=== PATIENT | female | born 1940 | race Caucasian/White ===

== ENCOUNTER 2021-06-30 13:21 | Inpatient (IN) | payer MEDICARE, OTHER ==
[~2021-06-30] VITALS: Ht 162.6 cm; Wt 77.1 kg
--- NOTE | 2021-06-30 13:34 | NUR ---
PT CAME TO ER C/O SYNCOPE TODAY. PT SLIPPED FROM CHAIR AND REPORTS HITTING R SIDE OF HEAD. DENIES PAIN, NAUSEA, DIZZINESS. AAOX4, BREATHING EVEN AND UNLABORED. ASSISTED TO ER BED 2. ON MONITOR. VS STABLE. AWAITING MD FOR EVAL.
--- NOTE | 2021-06-30 13:52 | NUR ---
RADIOLOGY AT BEDSIDE
--- NOTE | 2021-06-30 14:21 | NUR ---
PT TAKEN TO CT
--- NOTE | 2021-06-30 14:40 | NUR ---
LAB AT BEDSIDE
--- NOTE | 2021-06-30 14:43 | NUR ---
MOVE SHEET SUBMITTED AND CALLED FOR TELE BED.
[2021-06-30] MEDS ORDERED: LEVO100T9 PO (14:48)
[2021-06-30] MEDS ORDERED: ATOR20TA PO (14:48)
[2021-06-30] MEDS ORDERED: LISI1TAB55 PO (14:48)
[2021-06-30 14:56] LABS: BASOPHILS % (AUTO) 0.4 % (0.0-2.0); EOSINOPHILS % (AUTO) 0.4 % (0.0-6.0); HEMATOCRIT 39 % (33-45); HEMOGLOBIN 13.1 g/dL (11.5-14.8); LYMPHOCYTES # (AUTO) 1.1 K/uL (0.8-4.8); LYMPHOCYTES % (AUTO) 9.5 % (20.0-44.0); MEAN CORPUSCULAR HGB CONC 33 g/dl (31.0-36.0); MEAN CORPUSCULAR VOLUME 91 fL (82-100); MONOCYTES # (AUTO) 0.7 K/uL (0.1-1.30); NEUTROPHILS # (AUTO) 9.5 K/uL (1.8-8.9); NEUTROPHILS % (AUTO) 83.7 % (43.0-81.0); PLATELET COUNT (AUTO) 344 K/uL (150-450); RED BLOOD CELL COUNT(AUTO) 4.33 MIL/uL (4.0-5.2); WHITE BLOOD COUNT (AUTO) 11.3 K/uL (4.3-11.0)
[2021-06-30 15:06] LABS: CALCIUM, SERUM 9.8 mg/dL (8.5-10.1); CARBON DIOXIDE 28 mmol/L (21-32); CHLORIDE 103 mmol/L (98-107); CREATININE 1.1 mg/dL (0.6-1.3); GLUCOSE 100 mg/dL (74-106); POTASSIUM 3.8 mmol/L (3.5-5.1); SODIUM SERUM 139 mmol/L (136-145); UREA NITROGEN, BLOOD 26 mg/dL (7-18)
[2021-06-30 15:11] LABS: ALANINE AMINOTRANSFERASE 27 U/L (12-78); ALBUMIN 3.5 g/dL (3.4-5.0); ALKALINE PHOSPHATASE 113 U/L (46-116); ASPARTATE AMINOTRANSFERASE 20 U/L (15-37); BILIRUBIN,DIRECT 0.4 mg/dL (0.0-0.2); BILIRUBIN,TOTAL 2.9 mg/dL (0.2-1.0); TOTAL PROTEIN, SERUM 7.4 g/dL (6.4-8.2)
--- NOTE | 2021-06-30 15:22 | NUR ---
PT SITTING IN BED COMFORTABLY, NO PRESENT COMPLAINTS. NEEDS MET
--- NOTE | 2021-06-30 16:32 | NUR ---
COVID SAMPLE OBTAINED AND SENT TO LAB
--- NOTE | 2021-06-30 18:15 | NUR ---
GOT BED 308-1
--- NOTE | 2021-06-30 18:23 | NUR ---
REPORT GIVEN TO NURSE RINA FOR PATEL
[2021-06-30] MEDS ORDERED: ONDANSETRON HCL/PF 4 MG/2 ML VIAL IVP PRN ×2 (19:00→19:15)
[2021-06-30] MEDS ORDERED: Z GUARD REMEDY 4 OZ OINT TP PRN ×2 (19:00→19:15)
[2021-06-30] MEDS ORDERED: MAG HYDROX/AL HYDROX/SIMETH 30 ML UDC PO PRN ×2 (19:00→19:15)
[2021-06-30] MEDS ORDERED: MAGNESIUM HYDROXIDE 30 ML UDC PO PRN ×2 (19:00→19:15)
[2021-06-30] MEDS ORDERED: ZOLPIDEM TARTRATE 5 MG TABLET PO PRN ×2 (19:00→19:15)
[2021-06-30] MEDS ORDERED: ACETAMINOPHEN 325 MG TABLET PO PRN ×2 (19:00→19:15)
--- NOTE | 2021-06-30 19:00 | NUR ---
PT TANSFERRED TO 3W 308-1 VIA ACLS PROTOCOL. ALL BELONGINGS WITH PT. VSS.
[2021-06-30 19:30] VITALS: BP 134/88
--- NOTE | 2021-06-30 19:30 | NUR ---
NETWORK SECURITY ARCHITECT NOTES PT RECEIVED IN BED ALERT AND ORIENTED X4 ABLE TO MAKE NEEDS KNOWN NO SOB OR DISTRESS NOTED. NO CHEST PAIN REPORTED NO LIGHTHEADEDNESS, OR HEADACHE REPORTED. PT ON TELE MONITOR READING SR 70S. PT HAS IV ACCESS ON THE LEFT AC 20G S/L PATENT FLUSHING WELL. PT SKIN IS DRY WARM AND INTACT NO DISCOLORATION OR OPEN SKIN NOTED AT THIS TIME. PT ORIENTED TO ROOM AND UNIT. CALL LIGHT AND TABLE PLACED WITHIN REACH. PT INSTRUCTED NOT TO GET UP ON HER OWN SHE HAD A SYNCOPAL EPISODE AND TO CALL FOR ASSISTANCE. PT VERBALIZED UNDERSTANDING. BELONGINGS CHECKED. WILL CONTINUE TO MONITOR.
[2021-06-30 20:00] VITALS: BP 134/88
[2021-07-01] VITALS (8 sets, daily range): BP systolic 102–145; BP diastolic 55–100
--- NOTE | 2021-07-01 05:14 | NUR ---
RECREATION WORKER NOTES PRN TYLENOL GIVEN FOR HEADACHE. TOLERATED WELL. WILL CONTINUE TO MONITOR.
--- NOTE | 2021-07-01 06:26 | NUR ---
SENIOR SSIS DEVELOPER NOTES PT RECEIVED IN BED ALERT AND ORIENTED X4 ABLE TO MAKE NEEDS KNOWN NO SOB OR DISTRESS NOTED. NO CHEST PAIN REPORTED NO LIGHTHEADEDNESS, OR HEADACHE REPORTED. PT ON TELE MONITOR READING SR 80S. PT HAS IV ACCESS ON THE LEFT AC 20G S/L PATENT FLUSHING WELL. PT INSTRUCTED NOT TO GET UP ON HER OWN SHE HAD A SYNCOPAL EPISODE AND TO CALL FOR ASSISTANCE. PT VERBALIZED UNDERSTANDING. BELONGINGS CHECKED. WILL CONTINUE TO MONITOR.
--- NOTE | 2021-07-01 08:00 | NUR ---
RN Note Patient received AO x 4, able to responds all stimuli. denies pain or any discomfort. Respiratory even and unlabored on room air. Skin is warm to touch keep clean/dry. Call light within reach, will continue to monitor.
--- NOTE | 2021-07-01 18:00 | NUR ---
RN Closing Note Patient resting in bed, remains AO x 4. Respiratory even and unlabored on room air. Denies pain or discomfort. Skin is warm to touch, keep clean/dry, intact iv site. Kept elevated HOB for ensure airway and lower position of the bed for safety. Call light within reach, all needs met. will endorse power and recovery shift engineer.
--- NOTE | 2021-07-01 18:25 | NUR ---
Follow up with MD for DVT prophylaxis, new order SCD. Patient no need chemical prophylaxis required according MD due to patient ambulatory.
--- NOTE | 2021-07-01 19:35 | NUR ---
RN NOTES RECEIVED PATIENT AWAKE ON HER BED, A/OX4, SR ON TEL MONITOR DENIES PAIN, NO SOB, CALL LIGHT WITHIN REACH, [id number], WILL CONTINUE TO MONITOR
[2021-07-02] VITALS: BP 133/67
[2021-07-02 04:00] VITALS: BP 130/81
--- NOTE | 2021-07-02 06:55 | NUR ---
RN NOTES AWAKE, DENIES PAIN, NO SOB, MORNING CARE RENDERED, CALL LIGHT WITHIN REACH, [id number], PT. NEEDS ATTENDED
--- NOTE | 2021-07-02 07:30 | NUR ---
MANUFACTURING TECHNOLOGIST OPENING NOTES RECEIVED PATIENT AWAKE ON BED AND A/O X4. ON ROOM AIR TOLERATING WELL. NO SOB NOTED. NOT IN DISTRESS. WITH NO COMPLAINTS OF PAIN OR DISCOMFORT AT THIS TIME. WITH IV ACCESS AT LEFT AC G20, SALINE LOCKED, PATENT AND INTACT. SAFETY MEASURES IN PLACED. CALL LIGHT WITHIN REACH. BED ON LOWEST LOCKED POSITION, SIDE RAILS UP X2. WILL CONTINUE TO MONITOR.
[2021-07-02 07:37] LABS: BASOPHILS % (AUTO) 0.7 % (0.0-2.0); EOSINOPHILS % (AUTO) 3.3 % (0.0-6.0); HEMATOCRIT 38 % (33-45); LYMPHOCYTES # (AUTO) 1.9 K/uL (0.8-4.8); LYMPHOCYTES % (AUTO) 29.5 % (20.0-44.0); MEAN CORPUSCULAR HGB CONC 34 g/dl (31.0-36.0); MEAN CORPUSCULAR VOLUME 91 fL (82-100); MONOCYTES # (AUTO) 0.6 K/uL (0.1-1.30); MONOCYTES % (AUTO) 8.8 % (2.0-12.0); NEUTROPHILS # (AUTO) 3.7 K/uL (1.8-8.9); NEUTROPHILS % (AUTO) 57.7 % (43.0-81.0); PLATELET COUNT (AUTO) 334 K/uL (150-450); RED BLOOD CELL COUNT(AUTO) 4.24 MIL/uL (4.0-5.2); WHITE BLOOD COUNT (AUTO) 6.4 K/uL (4.3-11.0)
[2021-07-02 08:14] VITALS: BP 110/64
[2021-07-02 08:50] LABS: CREATININE 0.9 mg/dL (0.6-1.3); MAGNESIUM 1.9 mg/dL (1.8-2.4); PHOSPHORUS 3.5 mg/dL (2.5-4.9); POTASSIUM 3.9 mmol/L (3.5-5.1)
[2021-07-02 09:40] LABS: CALCIUM, SERUM 9.2 mg/dL (8.5-10.1)
[2021-07-02 12:00] VITALS: BP 115/62
[2021-07-02 15:43] VITALS: BP 135/68
--- NOTE | 2021-07-02 18:39 | NUR ---
ASH COLLECTOR CLOSING NOTES PATIENT AWAKE ON BED AND A/O X4. ON ROOM AIR TOLERATING WELL. NO SOB NOTED. NOT IN DISTRESS. ABLE TO MAKE NEEDS KNOWN. WITH NO COMPLAINTS OF PAIN OR DISCOMFORT AT THIS TIME. WITH IV ACCESS AT LEFT AC G20, SALINE LOCKED, PATENT AND INTACT. SAFETY MEASURES IN PLACED. CALL LIGHT WITHIN REACH. BED ON LOWEST LOCKED POSITION, SIDE RAILS UP X2. WILL ENDORSE TO NEXT SHIFT FOR PATEL.
--- NOTE | 2021-07-02 18:40 | NUR ---
RN NOTE ON TELE MONITOR CURRENTLY READING SINUS RHYTHM AT 79BPM.
--- NOTE | 2021-07-02 19:40 | NUR ---
SENIOR RESEARCH MANAGER OPENING NOTE RECEIVED PATIENT IN BED. A/OX4. NO S/S OF APPARENT DISTRESS ON ROOM AIR. DENIES PAIN AT THIS TIME. TELE MONITOR READING SR 87. SAFETY IN PLACE. NEEDS ATTENDED AT THE MOMENT. L.AC IV ACCESS FLUSHED-- INTACT AND PATENT. SAFETY IN PLACE. WILL CONTINUE TO MONITOR AND FOLLOW THROUGH PATIENT CARE PLAN.
[2021-07-02 20:00] VITALS: BP 124/68
[2021-07-02] MEDS ORDERED: ATORVASTATIN 10 MG TABLET PO SCH (22:00)
[2021-07-03] VITALS: BP 98/41
--- NOTE | 2021-07-03 00:12 | NUR ---
TRENCHING MACHINE OPERATOR NOTE BP 98/41 UPON RECHECKED. PATIENT DENIES ANY LIGHTHEADEDNESS AT THIS TIME.
--- NOTE | 2021-07-03 02:22 | NUR ---
VENEER JOINTER RETURNER NOTE REPORT GIVEN TO [place] FOR CONTINUITY OF CARE.
[2021-07-03 04:00] VITALS: BP 125/59
--- NOTE | 2021-07-03 06:40 | NUR ---
TEST DRILLER CLOSING NOTE PATIENT IN BED. A/OX4. NO S/S OF APPARENT DISTRESS ON ROOM AIR. DENIES PAIN AT THIS TIME. TELE MONITOR READING SR . SAFETY IN PLACE. NEEDS ATTENDED AT THE MOMENT. LAC IV ACCESS FLUSHED-- INTACT AND PATENT. SAFETY IN PLACE. WILL ENDORSE CARE TO DAYS SHIFT NURSE.
--- NOTE | 2021-07-03 07:43 | NUR ---
CORE DRILLER HELPER OPENING NOTE RECEIVED PATIENT IN BED, SITTING UP ON CELL PHONE. A/OX4. NO S/S OF APPARENT DISTRESS, NO SOB. ON ROOM AIR, TOLERATING WELL. NO COMPLAINTS OF PAIN AT THIS TIME. IV ACCESS LAC#20 PATENT AND INTACT SL. TELE MONITOR READING SR 85. SAFETY MEASURES IN PLACE WITH BED LOW AND LOCKED, SIDE RAILS UP X 2 . CALL LIGHT IS WITHIN REACH. WILL CONTINUE TO MONITOR PATIENT THROUGHOUT SHIFT.
[2021-07-03 08:00] VITALS: BP 118/68
[2021-07-03] MEDS ORDERED: LEVOTHYROXINE SODIUM 100 MCG TABLET PO SCH (09:00)
== END 2021-07-03 16:00 | disposition home or self-care (01) | DRG 312 ==
LOC: ER 13:49 → TELE 21:14
PROVIDERS: ADMIT Student in an Organized Health Care Education/Training Program; ATTEND Student in an Organized Health Care Education/Training Program
DX: I95.1 Orthostatic hypotension (principal); I10 Essential (primary) hypertension; Z79.899 Other long term (current) drug therapy; E86.0 Dehydration; D72.829 Elevated white blood cell count, unspecified; E78.5 Hyperlipidemia, unspecified; E03.9 Hypothyroidism, unspecified; Z79.890 Hormone replacement therapy; R79.89 Other specified abnormal findings of blood chemistry; I35.0 Nonrheumatic aortic (valve) stenosis; Z20.822 Contact with and (suspected) exposure to COVID-19
CPT/HCPCS: 36415; 70450-TC; 71045-TC; 80048-TC; 80076-TC; 83735-TC; 84100-TC; 84443-TC; 84484-TC; 85025-TC; 85730-TC; 87081-TC; 93307-TC; 97116-TC; 97530-TC; C9803; G0378

== ENCOUNTER 2022-02-13 11:18 | Inpatient (IN) | payer BC, MEDICARE, OTHER ==
[~2022-02-13] VITALS: Ht 165.1 cm; Wt 76.2 kg
[~2022-02-13 11:18] MED LIST: ATOR20TA PO; LEVO100T9 PO
--- NOTE | 2022-02-13 11:32 | NUR ---
accompanied by sister, patient c/o dizziness started this morning around 9am, "i feel like the room is spinnning". +nausea. to ER bed 12, hooked to monitor, changed to hosp gown,w arm blanket provided. patient AAO x4. breathing even and unlabored. awaiting md nuno
--- NOTE | 2022-02-13 11:56 | NUR ---
Dr Guillaume at bedside
[2022-02-13] MEDS ORDERED: LISI20TA30 PO (12:06)
[2022-02-13 12:33] LABS: BASOPHILS # (AUTO) 0.1 K/uL (0.0-0.2); BASOPHILS % (AUTO) 1.1 % (0.0-2.0); EOSINOPHILS % (AUTO) 0.4 % (0.0-6.0); HEMATOCRIT 41 % (33-45); HEMOGLOBIN 13.4 g/dL (11.5-14.8); LYMPHOCYTES # (AUTO) 1.5 K/uL (0.8-4.8); LYMPHOCYTES % (AUTO) 12.5 % (20.0-44.0); MEAN CORPUSCULAR HGB CONC 33 g/dl (31.0-36.0); MEAN CORPUSCULAR VOLUME 87 fL (82-100); MONOCYTES # (AUTO) 0.7 K/uL (0.1-1.30); MONOCYTES % (AUTO) 6.1 % (2.0-12.0); NEUTROPHILS # (AUTO) 9.4 K/uL (1.8-8.9); NEUTROPHILS % (AUTO) 79.9 % (43.0-81.0); PLATELET COUNT (AUTO) 539 K/uL (150-450); RED BLOOD CELL COUNT(AUTO) 4.68 MIL/uL (4.0-5.2); WHITE BLOOD COUNT (AUTO) 11.7 K/uL (4.3-11.0)
[2022-02-13] MEDS ORDERED: LISI1TAB55 PO (13:23)
--- NOTE | 2022-02-13 13:24 | NUR ---
RAPID COVID SWAB DONE AND SENT TO LAB
--- NOTE | 2022-02-13 14:26 | NUR ---
PATIENT NOT ABLE TO PROVIDE URINE SAMPLE.
[2022-02-13] MEDS ORDERED: ONDANSETRON HCL/PF 4 MG/2 ML VIAL IVP PRN (14:30)
[2022-02-13] MEDS ORDERED: MORPHINE SULFATE INJ 2 MG/ML DISP.SYRIN IV PRN (14:30)
[2022-02-13] MEDS ORDERED: ACETAMINOPHEN 325 MG TABLET PO PRN (14:30)
--- NOTE | 2022-02-13 14:36 | NUR ---
room 324-1
[2022-02-13 14:47] LABS: CALCIUM, SERUM 8.5 mg/dL (8.5-10.1); CARBON DIOXIDE 27 mmol/L (21-32); CHLORIDE 97 mmol/L (98-107); CREATININE 0.9 mg/dL (0.6-1.3); GLUCOSE 114 mg/dL (74-106); POTASSIUM 3.9 mmol/L (3.5-5.1); SODIUM SERUM 131 mmol/L (136-145); UREA NITROGEN, BLOOD 17 mg/dL (7-18)
[2022-02-13 15:02] LABS: ALANINE AMINOTRANSFERASE 345 U/L (12-78); ALBUMIN 1.8 g/dL (3.4-5.0); ASPARTATE AMINOTRANSFERASE 722 U/L (15-37); BILIRUBIN,DIRECT 11.8 mg/dL (0.0-0.2); TOTAL PROTEIN, SERUM 6.2 g/dL (6.4-8.2)
--- NOTE | 2022-02-13 15:03 | NUR ---
VIKOTR JENSEN AT BEDSIDE
[2022-02-13 15:20] LABS: ALKALINE PHOSPHATASE 1787 U/L (46-116)
[2022-02-13 15:42] LABS: THYROID STIMULATING HORMONE 2.45 uIU/mL (0.358-3.74)
[2022-02-13 16:08] LABS: BAND % (MANUAL) 1 % (0.0-5.0); EOSINOPHILS % (MANUAL) 1 % (0-4); LYMPHOCYTES % (MANUAL) 14 % (16-48); MONOCYTES % (MANUAL) 6 % (0-11.0); NEUTROPHILS % (MANUAL) 78 (42-76)
--- NOTE | 2022-02-13 17:00 | NUR ---
MEAT SELECTOR ADMITTING NOTES PATIENT ADMITTED TO UNIT FROM ER VIA RNEY AND AMBULATED TO BED WITHOUT INCIDENT. PATIENT A/O X 4, ABLE TO MAKE NEEDS KNOWN, TOLERATING WELL ON ROOM AIR WITH NO S/S RESPIRATORY DISTRESS. NO COMPLAINTS OF PAIN OR DISCOMFORT. R WRIST # 20 G SL CLEAN, INTACT, AND FLUSHING WELL. TELE MONITOR IN PLACE READING SR 80. SAFETY MEASURES IN PLACE: BED IN LOWEST LOCKED POSITION, SIDE RAILS UP X 2, CALL LIGHT WITHIN REACH. DNR COMPLETED AND PLACED IN CHART. WILL CONTINUE TO MONITOR.
[2022-02-13] MEDS ORDERED: MEROPENEM 1 G in IV NS 0.9% 100 ML IV SCH (17:30)
--- NOTE | 2022-02-13 17:37 | NUR ---
CROWN POUNCER NOTES PATIENT FILLED OUT DNR/DNI FORM INDICATING DNR, LIMITED INTERVENTIONS, AND NO ARTIFICIAL NUTRITION. FORM SIGNED BY PATIENT AND I SPOKE WITH DR AGRAWAL VIA PHONE WHO PROVIDED TELEPHONE CONSENT FOR DNR FORM. FORM PLACED IN PATIENT'S CHART.
[2022-02-13] MEDS: ENOXAPARIN SODIUM 40 MG/0.4 ML DISP.SYRIN SQ SCH (17:46)
--- NOTE | 2022-02-13 19:00 | NUR ---
NATIONAL COVERAGE SPECIALIST CLOSING NOTES PATIENT LAYING IN BED, A/O X 4, ABLE TO MAKE NEEDS KNOWN, TOLERATING WELL ON ROOM AIR WITH NO S/S RESPIRATORY DISTRESS. NO COMPLAINTS OF PAIN OR DISCOMFORT AT THIS TIME. R WRIST # 20 G SL CLEAN, INTACT, AND FLUSHING WELL. TELE MONITOR IN PLACE READING SR 82. SAFETY MEASURES IN PLACE: BED IN LOWEST LOCKED POSITION, SIDE RAILS UP X 2, CALL LIGHT WITHIN REACH. ALL NEEDS MET. WILL ENDORSE TO EXCEL ANALYST FOR PATEL.
[2022-02-13 20:00] VITALS: BP 139/73
[2022-02-13] MEDS ORDERED: MEROPENEM 1 G VIAL IV ONE (21:36)
[2022-02-13] MEDS: MEROPENEM 1 G in IV NS 0.9% 100 ML IV SCH (21:48)
[2022-02-13] MEDS ORDERED: ATORVASTATIN 10 MG TABLET PO SCH (22:00)
[2022-02-14] VITALS: BP 118/66
[2022-02-14 04:00] VITALS: BP 119/64
[2022-02-14] MEDS ORDERED: MEROPENEM 1 G VIAL IV ONE (05:34)
[2022-02-14] MEDS: MEROPENEM 1 G in IV NS 0.9% 100 ML IV SCH (05:47)
[2022-02-14 06:29] LABS: ALBUMIN 1.6 g/dL (3.4-5.0); BILIRUBIN,DIRECT 10.4 mg/dL (0.0-0.2); BILIRUBIN,TOTAL 14.2 mg/dL (0.2-1.0); CALCIUM, SERUM 8.3 mg/dL (8.5-10.1); CREATININE 0.8 mg/dL (0.6-1.3); MAGNESIUM 2.5 mg/dL (1.8-2.4); PHOSPHORUS 2.4 mg/dL (2.5-4.9); POTASSIUM 3.8 mmol/L (3.5-5.1); TOTAL PROTEIN, SERUM 5.6 g/dL (6.4-8.2)
--- NOTE | 2022-02-14 06:54 | NUR ---
WAXER TENDER CLOSING NOTE PATIENT SLEEPING IN BED, ALERT/ORIENTED X 4, PT ABLE TO MAKE NEEDS KNOWN. PATIENT STABLE ON RA, NO S/S OF DISTRESS OR SOB NOTED, BREATHING EVEN AND UNLABORED. PATIENT ON EXTERNAL BURNER TECHNICIAN READING SINUS RHYTHM WITH PAC'S, HR: 88. PATIENT KEPT NPO FOR MRCP TODAY, CONSENT AND MRI QUESTIONNAIRE COMPLETED AND SIGNED. RIGHT WRIST IV ACCESS INTACT AND SALINE LOCKED. MEDICATION GIVEN ORDERED, PT NEEDS MET THROUGHOUT SHIFT. SAFETY MEASURES IN PLACE: CALL LIGHT WITHIN REACH, SIDE RAILS UP X 2, BED LOCKED IN LOWEST POSITION, BED ALARM ON. WILL ENDORSE TO DAY SHIFT NURSE FOR CONTINUITY OF CARE
[2022-02-14 07:06] LABS: HEMATOCRIT 36 % (33-45); HEMOGLOBIN 12.3 g/dL (11.5-14.8); MEAN CORPUSCULAR HGB CONC 35 g/dl (31.0-36.0); MEAN CORPUSCULAR VOLUME 87 fL (82-100); PLATELET COUNT (AUTO) 478 K/uL (150-450); RED BLOOD CELL COUNT(AUTO) 4.11 MIL/uL (4.0-5.2); WHITE BLOOD COUNT (AUTO) 10.5 K/uL (4.3-11.0)
--- NOTE | 2022-02-14 07:15 | NUR ---
RN OPENING NOTE PT IS AWAKE, ALERT, AND ORIENTED. NO SIGNS OF RESPIRATORY DISTRESS OR PAIN AT THIS TIME. RIGHT WRIST IV 20G SALINE LOCK PATENT AND INTACT. PT KEPT NPO FOR SCHEDULED MRCP. MORNING MEDS ADMINISTERED, BP MEDS HELD DUE TO LOW BP OF 94/48. ON TELE MONITOR READING NORMAL SINUS, HR AT 90. CALL LIGHT WITHIN REACH. BED IN LOWEST POSITION. ALL NEEDS OF PT MET AT THIS TIME.
[2022-02-14] MEDS: LEVOTHYROXINE SODIUM 100 MCG TABLET PO SCH (08:14)
[2022-02-14 08:17] VITALS: BP 94/48
[2022-02-14] MEDS: LISINOPRIL (20MG) 20 MG TABLET PO SCH (09:00)
[2022-02-14] MEDS ORDERED: HYDROCHLOROTHIAZIDE 25 MG TABLET PO SCH (09:00)
--- NOTE | 2022-02-14 10:00 | NUR ---
RN NOTES, PT TAKEN DOWN FOR SCHEDULED PROCEDURE.
[2022-02-14] MEDS ORDERED: K PHOS NEUTRAL 250 MG TABLET PO ONE (11:00)
[2022-02-14 11:51] VITALS: BP 117/63
--- NOTE | 2022-02-14 13:00 | NUR ---
RN NOTE PT CAME BACK FROM PROCEDURE. DIET CHANGE FROM NPO TO REGULAR DIET PER MD. PATIENT DENIES PAIN AND DISCOMFORT AT THIS TIME.
[2022-02-14] MEDS: ENOXAPARIN SODIUM 40 MG/0.4 ML DISP.SYRIN SQ SCH (15:30)
[2022-02-14 16:01] VITALS: BP 113/64
[2022-02-14 16:38] LABS: BAND % (MANUAL) 1 % (0.0-5.0); LYMPHOCYTES % (MANUAL) 10 % (16-48); MONOCYTES % (MANUAL) 12 % (0-11.0); NEUTROPHILS % (MANUAL) 77 (42-76)
[2022-02-14] MEDS: MEROPENEM 500 MG in IV NS 0.9% 100 ML IV SCH (17:30)
--- NOTE | 2022-02-14 18:42 | NUR ---
RN CLOSING NOTE PATIENT ALERT AND ORIENTED X4. NO SOB NOTED. IV 20G IN THE RIGHT WRIST INFUSING SCHEDULED MEDS. PATIENT ON TELE READING NORMAL SINUS RHYTHM AT 90 BPM. BED IN LOWEST POSITION WITH SIDE RAILS X2. CALL LIGHT WITHIN REACH. NO SIGNS OF PATIENT DISTRESS AT THIS TIME. WILL ENDORSE TO CREDIT ADJUSTER NURSE FOR CONTINUITY OF CARE.
--- NOTE | 2022-02-14 19:27 | NUR ---
RN OPENING NOTE PATIENT ALERT AND ORIENTED X4. NO SOB NOTED. IV 20G IN THE RIGHT WRIST INFUSING WELL. PATIENT ON TELE READING NORMAL SINUS RHYTHM AT 90 BPM. BED IN LOWEST POSITION WITH SIDE RAILS X2. CALL LIGHT WITHIN REACH. NO SIGNS OF PATIENT DISTRESS AT THIS TIME. WILL CONTINUE TO MONITOR.
[2022-02-14 20:00] VITALS: BP 127/67
[2022-02-15] VITALS: BP 108/36
[2022-02-15 04:00] VITALS: BP 143/47
[2022-02-15] MEDS: MEROPENEM 500 MG in IV NS 0.9% 100 ML IV SCH ×2 (04:02→17:10)
[2022-02-15 06:09] LABS: BASOPHILS # (AUTO) 0.2 K/uL (0.0-0.2); BASOPHILS % (AUTO) 2.4 % (0.0-2.0); EOSINOPHILS % (AUTO) 0.6 % (0.0-6.0); HEMATOCRIT 38 % (33-45); HEMOGLOBIN 12.9 g/dL (11.5-14.8); LYMPHOCYTES # (AUTO) 2.3 K/uL (0.8-4.8); LYMPHOCYTES % (AUTO) 23.5 % (20.0-44.0); MEAN CORPUSCULAR HGB CONC 34 g/dl (31.0-36.0); MEAN CORPUSCULAR VOLUME 87 fL (82-100); MONOCYTES # (AUTO) 0.8 K/uL (0.1-1.30); MONOCYTES % (AUTO) 8.5 % (2.0-12.0); NEUTROPHILS # (AUTO) 6.3 K/uL (1.8-8.9); PLATELET COUNT (AUTO) 440 K/uL (150-450); RED BLOOD CELL COUNT(AUTO) 4.41 MIL/uL (4.0-5.2); WHITE BLOOD COUNT (AUTO) 9.7 K/uL (4.3-11.0)
[2022-02-15 07:00] LABS: CALCIUM, SERUM 8.1 mg/dL (8.5-10.1); CARBON DIOXIDE 26 mmol/L (21-32); CHLORIDE 100 mmol/L (98-107); CREATININE 0.8 mg/dL (0.6-1.3); GLUCOSE 108 mg/dL (74-106); MAGNESIUM 2.4 mg/dL (1.8-2.4); PHOSPHORUS 2.8 mg/dL (2.5-4.9); POTASSIUM 3.7 mmol/L (3.5-5.1); SODIUM SERUM 132 mmol/L (136-145); UREA NITROGEN, BLOOD 14 mg/dL (7-18)
--- NOTE | 2022-02-15 07:03 | NUR ---
RN CLOSING NOTE PATIENT ALERT AND ORIENTED X4. NO SOB NOTED. IV 20G IN THE RIGHT WRIST INFUSING ANTIBIOTIC AT THIS TIME WELL. PATIENT ON TELE READING NORMAL SINUS RHYTHM AT 74 BPM. BED IN LOWEST POSITION WITH SIDE RAILS X2. CALL LIGHT WITHIN REACH. NO SIGNS OF PATIENT DISTRESS AT THIS TIME. WILL ENDORSE CARE TO DAY SHIFT NURSE.
[2022-02-15 07:16] LABS: BILIRUBIN,TOTAL 14.3 mg/dL (0.2-1.0); TOTAL PROTEIN, SERUM 5.6 g/dL (6.4-8.2)
[2022-02-15 07:25] LABS: BILIRUBIN,DIRECT 9.6 mg/dL (0.0-0.2)
--- NOTE | 2022-02-15 07:30 | NUR ---
RN OPENING NOTE PT IS AWAKE AND ALERT X4. RESTING COMFORTABLY NO SIGNS OF RESPIRATORY DISTRESS OR SOB AT THIS TIME. IV 20 G IN RIGHT WRIST INTACT AND PATENT. BED IN LOWEST POSITION, SIDE RAILS UP X2, CALL LIGHT IS WITHIN REACH. WILL CONTINUE TO MONITOR.
[2022-02-15 07:32] LABS: ALBUMIN 1.4 g/dL (3.4-5.0)
--- NOTE | 2022-02-15 07:40 | NUR ---
RN NOTE ORDERS TO D/C TELE MONITORING. PT IS OFF MONITORING UNIT. BP READING 90/48, PULSE READING AT 86 BPM. WILL CONTINUE TO MONITOR.
--- NOTE | 2022-02-15 07:47 | NUR ---
RN NOTE LAB CALLED, MAY ENDORSED, STATED PT HAS A CRITICAL LAB VALUE OF ALBUMIN 1.4, DOCTOR NOTIFIED.
[2022-02-15] MEDS: LEVOTHYROXINE SODIUM 100 MCG TABLET PO SCH (08:02)
[2022-02-15 08:26] VITALS: BP 90/48
[2022-02-15] MEDS: LISINOPRIL (20MG) 20 MG TABLET PO SCH (09:00)
[2022-02-15] MEDS: ENOXAPARIN SODIUM 40 MG/0.4 ML DISP.SYRIN SQ SCH (15:17)
[2022-02-15 16:04] VITALS: BP 99/41
--- NOTE | 2022-02-15 18:48 | NUR ---
MS RN CLOSING NOTE PT IS AWAKE AND ALERT X4. PATIENT ON ROOM AIR WITH EQUAL AND UNLABORED BREATHING, RESTING COMFORTABLY NO SIGNS OF RESPIRATORY DISTRESS OR SOB AT THIS TIME. WITH IV 20 G ON RIGHT WRIST INTACT AND PATENT. BED IN LOWEST POSITION, SIDE RAILS UP X2, CALL LIGHT IS WITHIN REACH. WILL ENDORSE TO NEXT SHIFT FOR CONTINUITY OF CARE.
[2022-02-15 20:00] VITALS: BP 127/71
--- NOTE | 2022-02-15 20:11 | NUR ---
MS RN OPENING NOTE PT IS AWAKE AND ALERT X4. PATIENT ON ROOM AIR WITH EQUAL AND UNLABORED BREATHING, RESTING COMFORTABLY NO SIGNS OF RESPIRATORY DISTRESS OR SOB AT THIS TIME. WITH IV 20 G ON RIGHT WRIST INTACT AND PATENT. BED IN LOWEST POSITION, SIDE RAILS UP X2, CALL LIGHT IS WITHIN REACH.
--- NOTE | 2022-02-16 00:07 | NUR ---
RN NOTE spoke to [facility] litigation claim representative pt as been excepted to [facility] just awaiting bed availability. charge nurse made aware.
[2022-02-16] MEDS: MEROPENEM 500 MG in IV NS 0.9% 100 ML IV SCH ×2 (04:54→17:43)
--- NOTE | 2022-02-16 06:39 | NUR ---
MS RN CLOSING NOTE PT IS AWAKE AND ALERT X4. PATIENT ON ROOM AIR WITH EQUAL AND UNLABORED BREATHING, RESTING COMFORTABLY NO SIGNS OF RESPIRATORY DISTRESS OR SOB AT THIS TIME. WITH IV 20 G ON RIGHT WRIST INTACT AND PATENT. BED IN LOWEST POSITION, SIDE RAILS UP X2, CALL LIGHT IS WITHIN REACH.
[2022-02-16 07:25] LABS: BASOPHILS # (AUTO) 0.1 K/uL (0.0-0.2); BASOPHILS % (AUTO) 0.9 % (0.0-2.0); EOSINOPHILS % (AUTO) 1.8 % (0.0-6.0); HEMATOCRIT 39 % (33-45); HEMOGLOBIN 12.9 g/dL (11.5-14.8); LYMPHOCYTES # (AUTO) 2.3 K/uL (0.8-4.8); LYMPHOCYTES % (AUTO) 22.3 % (20.0-44.0); MEAN CORPUSCULAR HGB CONC 33 g/dl (31.0-36.0); MEAN CORPUSCULAR VOLUME 88 fL (82-100); MONOCYTES % (AUTO) 10.3 % (2.0-12.0); NEUTROPHILS # (AUTO) 6.5 K/uL (1.8-8.9); NEUTROPHILS % (AUTO) 64.7 % (43.0-81.0); PLATELET COUNT (AUTO) 460 K/uL (150-450); RED BLOOD CELL COUNT(AUTO) 4.46 MIL/uL (4.0-5.2); WHITE BLOOD COUNT (AUTO) 10.1 K/uL (4.3-11.0)
--- NOTE | 2022-02-16 07:25 | NUR ---
MS RN OPENING NOTES RECEIVED PATIENT IN BED AWAKE, A/O X4. STABLE ON RA WITH NO SIGNS OF RESPIRATORY DISTRESS OR SOB AT THIS TIME. DENIES PAIN. IV ACCESS G#20 @ RIGHT WRIST INTACT AND PATENT. SAFETY PRECAUTIONS IN PLACE. WILL CONTINUE TO MONITOR
[2022-02-16 07:44] LABS: CALCIUM, SERUM 8.7 mg/dL (8.5-10.1); CREATININE 0.7 mg/dL (0.6-1.3); MAGNESIUM 2.5 mg/dL (1.8-2.4); PHOSPHORUS 2.4 mg/dL (2.5-4.9); POTASSIUM 3.8 mmol/L (3.5-5.1)
[2022-02-16 07:53] LABS: ALBUMIN 1.5 g/dL (3.4-5.0); BILIRUBIN,DIRECT 10.5 mg/dL (0.0-0.2); BILIRUBIN,TOTAL 14.3 mg/dL (0.2-1.0); TOTAL PROTEIN, SERUM 5.7 g/dL (6.4-8.2)
[2022-02-16 08:00] VITALS: BP 103/56
[2022-02-16] MEDS: LISINOPRIL (20MG) 20 MG TABLET PO SCH (08:32)
[2022-02-16] MEDS: LEVOTHYROXINE SODIUM 100 MCG TABLET PO SCH (08:33)
--- NOTE | 2022-02-16 08:38 | NUR ---
WOUND CARE CONSULT: PT SEEN FOR LESIONS ON BILATERAL ARMS, PRESENT ON ADMISSION. PT STATES HAS HAD THESE BEFORE ADMISSION AND THAT SHE SOMETIMES SCRATCHES HERSELF AT NIGHT. DEFER TO PMD. WILL SEE PRN.
[2022-02-16] MEDS ORDERED: K PHOS NEUTRAL 250 MG TABLET PO ONE (11:00)
[2022-02-16 11:39] VITALS: BP 107/59
[2022-02-16] MEDS: ENOXAPARIN SODIUM 40 MG/0.4 ML DISP.SYRIN SQ SCH (15:18)
[2022-02-16 16:27] VITALS: BP 100/54
--- NOTE | 2022-02-16 17:00 | NUR ---
RN NOTES PATIENT TRANSFERRED TO CT FOR SCAN
--- NOTE | 2022-02-16 18:13 | NUR ---
RN NOTES COVID SWAB SENT TO LAB
[2022-02-16] MEDS ORDERED: MERO500P IV (19:25)
[2022-02-16] MEDS ORDERED: ENOX40DI SQ (19:25)
--- NOTE | 2022-02-16 19:29 | NUR ---
RN NOTES PATIENT STABLE IN BED. NO COMPLAINTS AT THIS TIME. SAFETY PRECAUTIONS IN PLACE. ENDORSED REPORT TO THE INDUSTRIAL MAINTENANCE REPAIRER HELPER NURSE FOR PATEL
--- NOTE | 2022-02-16 19:30 | NUR ---
MS RN OPENING NOTE PATIENT IS AWAKE, ALERT AND ORIENTED X4. NO SIGNS OF RESPIRATORY DISTRESS OR SOB AT THIS TIME. WITH IV ACCESS ON RIGHT WRIST 20 GAUGE. INTACT, PATENT AND FLUSHING WELL. SAFETY MEASURES IN PLACE. BED IN LOWEST POSITION, SIDE RAILS UP X2, CALL LIGHT IS WITHIN REACH.
[2022-02-16 20:00] VITALS: BP 94/52
--- NOTE | 2022-02-16 22:07 | NUR ---
WRECKER DRIVER NOTES PATIENT IS ALERT AND ORIENTED X3-4. NO S/SX OF ACUTE DISTRESS NOTED. NO SOB NOTED. VITAL SIGNS ARE STABLE. DISCHARGE INSTRUCTIONS WAS GIVEN. REPORT GIVEN TO STEVO MARTIN. BELONGINGS SIGNED BY PATIENT. PATIENT WAS TRANSFERRED TO [facility]. PATIENT WAS PICKED UP BY 2 EMT'S LILA FROM [facility]. CHARGE NURSE AWARE. Addendum: 02/16/22 at 2226 by ASUNCION LEACH RN PATIENT'S SISTER JULIAN ACKERMAN NOTIFIED OF PT'S TRANSFER TO [facility]. PT'S SISTER IS APPRECIATIVE OF THE CALL.
== END 2022-02-16 22:18 | disposition short-term general hospital (02) | DRG 435 ==
LOC: ER 12:04 → TELE 14:57 → UNDOADMIN 14:57 → MED 02-15 22:14 → TELE 02-15 22:14 → UNDODISIN 02-17
PROVIDERS: ADMIT Internal Medicine; ATTEND Student in an Organized Health Care Education/Training Program
DX: C24.0 Malignant neoplasm of extrahepatic bile duct (principal); E43 Unspecified severe protein-calorie malnutrition; E87.1 Hypo-osmolality and hyponatremia; R17 Unspecified jaundice; C78.6 Secondary malignant neoplasm of retroperitoneum and peritoneum; K80.31 Calculus of bile duct with cholangitis, unspecified, with obstruction; R18.8 Other ascites; I95.9 Hypotension, unspecified; D72.829 Elevated white blood cell count, unspecified; Z20.822 Contact with and (suspected) exposure to COVID-19; I10 Essential (primary) hypertension; Z79.899 Other long term (current) drug therapy; E80.6 Other disorders of bilirubin metabolism; E11.9 Type 2 diabetes mellitus without complications; Z90.49 Acquired absence of other specified parts of digestive tract; E03.9 Hypothyroidism, unspecified; Z86.79 Personal history of other diseases of the circulatory system; E78.5 Hyperlipidemia, unspecified; K57.30 Diverticulosis of large intestine without perforation or abscess without bleeding; E88.09 Other disorders of plasma-protein metabolism, not elsewhere classified; D75.839 Thrombocytosis, unspecified
CPT/HCPCS: 36415; 71045-TC; 71250-TC; 74181-TC; 76705-TC; 80048-TC; 80053-TC; 80076-TC; 82105; 82378; 83735-TC; 83880; 84100-TC; 84439-TC; 84443-TC; 84481; 84484-TC; 85025-TC; 86301; 86304; 87081-TC; 93307-TC; C9803; G0378; J1650; J2185; J7030; J7050